=== PATIENT | male | born 1945 | race Caucasian/White ===

== ENCOUNTER → 2017-06-14 10:14 | Outpatient (CLI) | payer MEDICARE ==
[2015-09-13 12:59] VITALS: BMI 38.5
[~2017-06-14 10:14] MED LIST: B-12 DOTS500 MCG PO; BETAPACE 80 MG80 MG PO; COLACE100 MG PO; FISH OIL 1,0001 CA1 PO; MULTIPLE VITAMI1 TA1 PO; NORVASC5 MG PO; PRILOSEC20 MG PO; TYLENOL W/CODEI1 TAB PO; XARELTO15 MG PO; ZESTORETIC 20-1 EACH PO; ZYRTEC10 MG PO
== END | disposition home or self-care (01) ==
LOC: D.LAB 10:14
DX: N39.0 Urinary tract infection, site not specified (principal); R31.9 Hematuria, unspecified

== ENCOUNTER → 2017-06-18 07:59 | Outpatient (CLI) | payer MEDICARE, BC ==
[2015-09-13 12:59] VITALS: BMI 38.5
== END | disposition home or self-care (01) ==
LOC: D.CT 07:59
DX: R31.9 Hematuria, unspecified (principal)

== ENCOUNTER 2017-07-11 05:43 | Day surgery (SDC) | payer MEDICARE, BC ==
[2017-07-10 10:22] LABS: HEMATOCRIT 40.1 % (42.0-54.0); HEMOGLOBIN 13.2 g/dL (13.5-17.5); MCH 29.4 pg (26.0-34.0); MCHC 32.9 g/dL (31.0-37.0); MCV 89.3 fL (80.0-100.0); MEAN PLATELET VOLUME 10.5 fL (7.4-10.4); RBC 4.49 10x6/uL (4.20-6.10); RDW 13.9 % (11.5-14.5); WBC 9.1 10x3/uL (4.8-10.8)
[2017-07-10 10:41] LABS: CALCIUM 9.8 mg/dL (8.5-10.1); CARBON DIOXIDE 26.3 mmol/L (21.0-32.0); CREATININE - SERUM 1.1 mg/dL (0.6-1.3); POTASSIUM - SERUM 4.3 mmol/L (3.5-5.1)
[~2017-07-11 05:43] MED LIST changes: +GLUCOPHAGE500 MG PO; +GLUCOSAMINE HC500 MG PO; +NORVASC10 MG PO; -NORVASC5 MG PO; +VITAMIN B-122500 MCG PO; +ZYLOPRIM300 MG PO
[2017-07-11] MEDS ORDERED: TRESIBA FL100 UNIT/1 SC (06:57)
[2017-07-11 07:01] VITALS: BP 118/64; BMI 37.7
--- NOTE | 2017-07-11 13:56 | OP ---
PATIENT NAME: JINNY THORNTON MEDICAL RECORD: [id number] :[birth year] LOCATION:D.[facility] ADMISSION DATE: SURGEON: ALDO EUGENE MD DATE OF OPERATION: 07/11/2017 SURGEON: Aldo Eugene MD ANESTHESIA: MAC by Emir Sánchez CRNA PREOPERATIVE DIAGNOSES: Gross hematuria, obstructive BPH. PROCEDURE: Cystoscopy. FINDINGS: Obstructive, vascular BPH. No bladder tumors. Heavily trabeculated bladder. ESTIMATED BLOOD LOSS: None. CLINICAL HISTORY: This is a 71-year-old male who has symptoms of obstructive BPH including slow urinary flow, urinary frequency, and nocturia. He also has episodes of gross hematuria. Urine cytology was sent and it is benign. He comes today to have cystoscopy performed. HE IS ALLERGIC TO IODINE. He was given Ancef 2 grams IV systems consultant to the OR. DESCRIPTION OF PROCEDURE: The patient was given IV sedation. He was then placed in the dorsal lithotomy position and prepped and draped. We used castile soap to prep the patient with. Lidocaine jelly was inserted into the urethra. A 17-Slovenian scope with 30-degree lens was used for visualization. The penile urethra shows no strictures. Bulbar urethra shows significant vascularity and this leads into an obstructive BPH with trilobar hyperplasia. The prostatic mucosa is very vascular. Going into the bladder, after going through a tall bladder neck, he has single ureteral orifices bilaterally. No bladder tumors were seen. The bladder is heavily trabeculated. The bladder was emptied through the scope and then the scope was removed. I will get the patient started on finasteride. I will see him in one month's time to see how he is doing. TRANSINT:[id number] Voice Confirmation ID: [id number] DOCUMENT ID: [id number] ALDO EUGENE MD at 1356 CC: [id number] DICTATION DATE: 07/11/17 1059 LEGUILLON DEBEADER: 07/11/17 1208 [facility] [address] [place] [address]
== END 2017-07-11 12:20 | disposition home or self-care (01) ==
LOC: D.OPS 05:43 → D.PAN 07:45 → D.OPS 09:00
PROVIDERS: Anesthesiology
DX: N40.0 Benign prostatic hyperplasia without lower urinary tract symptoms (principal); R31.9 Hematuria, unspecified; F17.200 Nicotine dependence, unspecified, uncomplicated; I10 Essential (primary) hypertension; E11.9 Type 2 diabetes mellitus without complications; J44.9 Chronic obstructive pulmonary disease, unspecified; K21.9 Gastro-esophageal reflux disease without esophagitis; Z01.812 Encounter for preprocedural laboratory examination

== ENCOUNTER → 2019-07-09 12:24 | Outpatient (CLI) | payer MEDICARE, BC ==
[~2019-07-09 12:24] MED LIST changes: +TRESIBA FL100 UNIT/1 SC
== END | disposition home or self-care (01) ==
LOC: D.RT 12:24
PROVIDERS: ATTEND Internal Medicine Pulmonary Disease
DX: J44.9 Chronic obstructive pulmonary disease, unspecified (principal); R59.0 Localized enlarged lymph nodes

== ENCOUNTER 2019-10-07 11:25 | Outpatient (CLI) | payer MEDICARE, BC ==
[~2019-10-07] VITALS: Ht 175.3 cm; Wt 75.0 kg
--- NOTE | ~2019-10-07 | HEMODYNAMI ---
PATIENT:JINNY THORNTON MEDICAL RECORD: [id number] : 49 LOCATION:D.[facility] ADMISSION DATE: 10/07/19 Generatedon:10/07/201913:26 Patient name: JINNY THORNTON Patient #: [id number] SSN: : 1945 Date of study: 10/07/2019 Page: Of Hemodynamic Procedure Report Patient Data Patient Demographics Procedure consent was obtained First Name: JINNY Gender: Male Last Name: NORBERTO : 1945 Middle Initial: A Age: 74 year(s) Patient #: [id number] Race: Unknown Additional ID: [id number] Contact details [address]: [address] [place] [address] DRIVE [place] [place] [facility] Zip code: [address] Past Medical History Allergies Allergen Reaction Date Comments Reported Iodine 09/13/2015 Iodine 10/07/2019 Admission Admission Data Admission Date: 10/07/2019 Admission Time: 11:25 Height (in.): 69 BSA: 2.36 (m2) Height (cm.): 175.26 BMI: 40.46 (kg/m2) Weight (lbs.): 274 Weight (kg.): 124.28 Lab Results Lab Result Date: 10/07/2019 Lab Result Time: 0:00 Biochemistry Name Units Result Min Max BUN mg/dl 29 --(----)-* 7 18 Creatinine mg/dl 1.1 --(--*-)-- 0.6 1.3 eGFR ml/min 70.36871 *-(----)-- 90 120 NONAFRICAN CBC Name Units Result Min Max Hematocrit % 45.6 --(-*--)-- 42 54 Hemoglobin g/dl 15.2 --(-*--)-- 13.5 17.5 Procedure Procedure Types Cath Procedure Diagnostic Procedure Cardioversion External Procedure Description Procedure Date Procedure Date: 10/07/2019 Procedure Start Time: 13:16 Procedure End Time: 13:23 Procedure Staff Name Function Tadeo Amado MD Performing Physician Denita Rodriguez RT Monitor Govind Fitzpatrick CRNA Additional personnel Josefina Emanuel RN Nurse Procedure Data Cath Procedure Estimated blood loss: 0 ml Procedure Complications No complications Procedure Medications Medication Administration Route Dosage 0.9% NaCl I.V. 100 ml/hr Oxygen etCO2 Nasal cannula 2 l/min Refer to Anesthesia Notes for Sedation Medications Hemodynamics Rest BSA: 2.36 (m2) HGB: 15.2 (g/dl) O2 Consumption: Estimated: 259.33 (ml/min) O2 Consumption indexed: Estimated:109.89 (ml/min/m) Heart Rate: 55 (bpm) Snapshots Pre Cath Intra NCS Post Cath Vital Signs Time Heart Resp SPO2 etCO2 NIBP (mmHg) Rhythm Pain Sedation Rate (ipm) (%) (mmHg) Status Level (bpm) 13:04:15 53 17 98 30 130/76(104) A-Fib 0 (11) 10(A) , No pain 13:08:33 48 16 98 30.7 130/76(108) A-Fib 0 (11) 10(A) , No pain 13:12:53 56 16 98 21.7 128/81(112) A-Fib 0 (11) 10(A) , No pain 13:17:13 54 15 98 30.7 127/74(109) A-Fib 0 (11) 9(A) , No pain 13:21:34 51 12 94 0 125/74(104) SB 0 (11) 10(A) , No pain 13:25:33 0 No Cuff SB 0 (11) 10(A) , No pain Medications Time Medication Route Dose Verified Delivered Reason Notes Effective ness by by 13:02:56 0.9% NaCl I.V. 100 Tadeo Kirti used for ml/hr Aneudy Moran weather analyst 13:03:15 Oxygen etCO2 2 Tadeo Kirti used for Nasal l/min Aneudy Moran procedure cannula RN 13:03:21 Refer to Tadeo Tadeo used for Anesthesia Aneudy Amado MD procedure Notes for Sedation Medications Procedure Log Time Note 12:50:12 Procedure Status Elective Heart Cath (OP). 12:50:13 Time tracking: Regular hours (M-F 7:00 - 5:00) 12:50:17 Plan of Care:Hemodynamics will remain stable., Cardiac rhythm will remain stable., Comfort level will be maintained., Respiratory function will remain adequate., Patient/ family verbilizes understanding of procedure., Procedure tolerated without complication., Recovers from procedure without complications.. 12:50:25 H&P Date Dictated: 09/25/2019 Within 30 days and on chart., H&P Addendum completed by physician on day of procedure. (MUST COMPLETE FOR ALL OUTPATIENTS). 12:50:31 Patient allergic to Iodine 12:51:15 Patient Weight : 274 lbs 12:51:19 Patient Height : 69 inches 12:55:08 Denita Rodriguez RT(R) sent for patient. Start room use. 12:57:57 Patient arrived from Pre/Post Procedure Room to [facility] 3. Patient remains on bed/stretcher for procedure. 12:57:59 Signed procedure consent form obtained from patient. 12:58:00 Warm blankets applied, and fidel hugger turned on for patient comfort. 12:58:01 Correct patient and procedure confirmed by team. 12:58:02 ECG and BP/O2 sat monitors applied to patient. 13:02:42 Vital chart was started 13:02:56 0.9% NaCl 100 ml/hr I.V. was administered by Kirti Moran RN; used for procedure; Verbal order read back and verified. 13:03:15 Oxygen 2 l/min etCO2 Nasal cannula was administered by Kirti Moran RN; used for procedure; Verbal order read back and verified. 13:03:21 Refer to Anesthesia Notes for Sedation Medications was administered by Tadeo Amado MD; used for procedure; Verbal order read back and verified. 13:03:43 Baseline sample Acquired. 13:03:49 Rhythm: atrial fibrillation 13:03:57 Full Disclosure recording started 13:03:57 Pre-procedure instructions explained to patient. 13:03:58 Pre-op teaching completed and patient verbalized understanding. 13:03:59 Family in patients room. 13:04:00 Patient NPO since Midnight. 13:04:02 Is the patient allergic to Iodine/contrast media? No. 13:04:03 Is patient on blood thinner?Yes 13:04:07 ACC The patient was administered the following blood thiners within the last 24 hours: Xarelto 13:04:09 Patient diabetic? Yes. 13:04:11 If diabetic: On Metformin? Yes 13:04:31 If on Metformin: Last Dose? 10/06/2019 13:04:49 Previous problem with sedation/anesthesia? No ? 13:04:50 Snore? Yes 13:04:50 Sleep apnea? Yes 13:04:51 Deviated septum? No 13:04:52 Opens mouth fully? Yes 13:04:53 Sticks out tongue? Yes 13:04:58 Airway obstruction? Yes ASTHMA 13:05:01 Dentures? No ? 13:05:04 Patient pain scale 0/10 ?. 13:05:10 IV patent on arrival in left antecubital with 0.9% NaCl at [facility]. 13:05:15 Alarms reviewed by Jazmine Hedrick 13:06:13 Quick Combo opened to sterile field. 13:08:20 Lab Result : Creatinine 1.1 mg/dl 13:08:20 Lab Result : BUN 29 mg/dl 13:08:20 Lab Result : eGFR NONAFRICAN 70.74751 ml/min 13:08:20 Lab Result : Hemoglobin 15.2 g/dl 13:08:20 Lab Result : Hematocrit 45.6 % 13:08:31 Lab results completed and on chart. 13:08:39 Govind Fitzpatrick CRNA present and monitoring patient for TIVA. 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 13:14:09 --------ALL STOP TIME OUT------ 13:14:09 Final Timeout: patient, procedure, and site verified with staff and physician. All members of the team are in agreement. 13:14:15 Physical assessment completed. ASA score P 2 - A patient with mild systemic disease as per Tadeo Amado MD. 13:14:19 Sedation plan: TIVA Medication:Propofol 13:16:22 Procedure started. 13:16:41 ------Cardioversion------ 13:18:23 Quick combo pads placed on patients chest and back. 13:18:26 Defibrillator synced and charged to 200 Joules. 13:18:48 Shock delivered. 13:18:57 Patient cardioverted to sinus bradycardia. 13:19:06 Procedure ended.(Physican Out) 13:20:06 Post-procedure physical assessment completed. ASA score P 2 - A patient with mild systemic disease as per Tadeo Amado MD. 13:20:10 Post procedure rhythm: sinus bradycardia 13:20:13 Estimated blood loss: 0 ml 13:20:14 Post procedure instruction explained to patient.Patient verbalizes understanding. 13:20:15 Patient needs reinforcement of post procedure teaching. 13:20:30 Procedure and supply charges have been captured, reviewed, submitted and are correct. 13:20:33 Procedure Complication : No complications 13:21:39 Operative report dictated upon procedure completion. 13:21:40 See physician's report for complete and final results. 13:23:41 Report given to Pre/Post Procedure Room. 13:23:44 Patient transfered to Pre/Post Procedure Room with Bed. 13:23:46 Procedure ended. 13:23:46 Full Disclosure recording stopped 13:23:50 End room use (Document Last) 13:26:08 Vital chart was stopped Device Usage Item Manufacture Quantity Catalog Hospital Part Current Minimal Lot# / Name Number Charge Number Stock Stock [facility]# Code [facility] OneWire 1 [id number] Combo Signature Audit [place] Stage Time Signature Unsigned Intra-Procedure 10/07/2019 Denita Rodriguez 1:24:53 PM RT(R) Intra-Procedure 10/07/2019 Josefina Emanuel RN 1:25:21 PM Intra-Procedure 10/07/2019 Tadeo Amado MD 1:26:06 PM [id number] [place] [address]
[2019-10-07] MEDS ORDERED: ASPIRIN81 MG PO (12:03)
[2019-10-07] MEDS ORDERED: ZYRTEC10 MG PO (12:03)
[2019-10-07] MEDS ORDERED: PROSCAR5 MG PO (12:04)
[2019-10-07] MEDS ORDERED: BASAGLAR K100 UNIT/1 (12:06)
[2019-10-07] MEDS ORDERED: BETAPACE 80 MG80 MG PO (12:09)
[2019-10-07] MEDS ORDERED: XARELTO20 MG PO (12:09)
[2019-10-07] MEDS ORDERED: LISINOPRIL-HCT1 EAC7 PO (12:09)
[2019-10-07] MEDS ORDERED: ZOLOFT25 MG (12:10)
[2019-10-07] MEDS ORDERED: LANTUS SOL100 UNIT/1 (12:11)
[2019-10-07 12:22] VITALS: BP 124/67; Ht 175.3 cm; Wt 75.0 kg
[2019-10-07 12:40] LABS: BASOPHILS 0.2 % (0-2); EOSINOPHILS 1.5 % (0-7); HEMATOCRIT 45.6 % (42.0-54.0); HEMOGLOBIN 15.2 g/dL (13.5-17.5); IMMATURE GRANULOCYTES 0.2 % (0-5); MCH 29.9 pg (26.0-34.0); MCHC 33.3 g/dL (31.0-37.0); MCV 89.8 fL (80.0-100.0); MEAN PLATELET VOLUME 10.9 fL (7.4-10.4); MONOCYTES 12.2 % (2-11); NEUTROPHILS 62.9 % (40-80); PLATELET COUNT 199 10x3/uL (130-400); RBC 5.08 10x6/uL (4.20-6.10); RDW 14.8 % (11.5-14.5); WBC 8.4 10x3/uL (4.8-10.8)
[2019-10-07 12:49] LABS: ANION GAP 12.5 mmol/L (8-16); CALCIUM 9.6 mg/dL (8.5-10.1); CARBON DIOXIDE 27.9 mmol/L (21.0-32.0); CREATININE - SERUM 1.1 mg/dL (0.6-1.3); POTASSIUM - SERUM 4.4 mmol/L (3.5-5.1)
[2019-10-07 12:50] LABS: INR 1.51 (0.85-1.17)
--- NOTE | 2019-10-07 13:32 | NUR ---
PT ARRIVED BY STRETCHER. PLACED ON MONITORS. ASSESSMENT COMPLETED. VSS. FAMILY AT BEDSIDE. CALL LIGHT WITHIN REACH.
--- NOTE | 2019-10-07 13:46 | NUR ---
PT SITTING UP IN BED. EATING AND DRINKING. DENIES NAUSEA/PAIN AT THIS TIME. VSS. PT SINUS ALISON ON MONITOR. HR 54.
--- NOTE | 2019-10-07 13:50 | NUR ---
DR. BACA ROUNDED AND SPOKE WITH PT AND PT'S FAMILY.
--- NOTE | 2019-10-07 14:15 | NUR ---
PT IN SINUS BRADYCARDIA. RATE 51. PIV D/C'D WITH CATH TIP INTACT. TOLERATED WELL. PT INSTRUCTED TO GET UP AND DRESSED AT THIS TIME.
--- NOTE | 2019-10-07 14:25 | NUR ---
DISCUSSED DISCHARGE INSTRUCTIONS WITH PT AND PT'S FAMILY. THEY VOICED UNDERSTANDING.
--- NOTE | 2019-10-07 14:30 | NUR ---
PT TAKEN OUT TO VEHICLE BY WHEELCHAIR. NO S/S OF DISTRESS NOTED. ALL BELONGINGS AND PAPERWORK IN HAND.
== END 2019-10-07 14:30 | disposition home or self-care (01) ==
LOC: D.CATH 11:25
PROVIDERS: ATTEND Internal Medicine Cardiovascular Disease
DX: I48.91 Unspecified atrial fibrillation (principal); E11.9 Type 2 diabetes mellitus without complications; I10 Essential (primary) hypertension; Z79.84 Long term (current) use of oral hypoglycemic drugs; Z72.0 Tobacco use; J44.9 Chronic obstructive pulmonary disease, unspecified

== ENCOUNTER → 2019-11-12 10:21 | Outpatient (CLI) | payer MEDICARE, BC ==
[2019-10-07 12:22] VITALS: BMI 24.4
[~2019-11-12 10:21] MED LIST changes: +ASPIRIN81 MG PO; +BASAGLAR K100 UNIT/1; +LANTUS SOL100 UNIT/1; +LISINOPRIL-HCT1 EAC7 PO; +PROSCAR5 MG PO; +XARELTO20 MG PO; +ZOLOFT25 MG
== END | disposition home or self-care (01) ==
LOC: D.CT 10:21
PROVIDERS: ATTEND Internal Medicine Pulmonary Disease
DX: R59.0 Localized enlarged lymph nodes (principal)

== ENCOUNTER 2020-02-26 08:52 | Outpatient (CLI) | payer MEDICARE, BC ==
[~2020-02-26] VITALS: Ht 175.3 cm; Wt 121.9 kg
--- NOTE | ~2020-02-26 | HEMODYNAMI ---
PATIENT:JINNY THORNTON MEDICAL RECORD: [id number] : 49 LOCATION:D.CAT ADMISSION DATE: 02/26/20 Generatedon:02/26/202011:18 Patient name: JINNY THORNTON Patient #: [id number] SSN: : 1945 Date of study: 02/26/2020 Page: Of Hemodynamic Procedure Report Patient Data Patient Demographics Procedure consent was obtained First Name: JINNY Gender: Male Last Name: NORBERTO : 1945 Middle Initial: A Age: 74 year(s) Patient #: [id number] Race: Unknown Additional ID: [id number] Contact details Address: [address] [place] [address] [address]IVE [place] [facility] Zip code: [address] Past Medical History Allergies Allergen Reaction Date Comments Reported Iodine 09/13/2015 Iodine 10/07/2019 Iodine 02/26/2020 Admission Admission Data Admission Date: 02/26/2020 Admission Time: 8:52 Lab Results Lab Result Date: 02/26/2020 Lab Result Time: 0:00 Biochemistry Name Units Result Min Max BUN mg/dl 23 --(----)-* 7 18 Creatinine mg/dl 0.3 *-(----)-- 0.6 1.3 eGFR ml/min 88.72003 -*(----)-- 90 120 NONAFRICAN CBC Name Units Result Min Max Hematocrit % 46.2 --(-*--)-- 42 54 Hemoglobin g/dl 14.9 --(-*--)-- 13.5 17.5 Procedure Procedure Types Cath Procedure Diagnostic Procedure Cardioversion External Procedure Description Procedure Date Procedure Date: 02/26/2020 Procedure Start Time: 11:06 Procedure End Time: 11:17 Procedure Staff Name Function Josefina Emanuel RN Nurse Stephanie Mcfarland RT Monitor Denita Rodriguez RT Scrub Emir Sánchez CRNA Additional personnel Rao Juarez MD Performing Physician Procedure Data Procedure Complications No complications Procedure Medications Medication Administration Route Dosage Oxygen etCO2 Nasal cannula 2 l/min Refer to Anesthesia Notes for Sedation Medications Hemodynamics Rest HGB: 14.9 (g/dl) Heart Rate: 50 (bpm) Snapshots Pre Cath Intra NCS Post Cath Vital Signs Time Heart Resp SPO2 etCO2 NIBP (mmHg) Rhythm Pain Sedation Rate (ipm) (%) (mmHg) Status Level (bpm) 11:02:28 53 19 93 141/74(106) NSR (Missing) 10(A) 11:06:36 55 15 95 135/83(101) NSR (Missing) 10(A) 11:11:35 44 23 93 0 Measuring NSR (Missing) 10(A) 11:11:41 44 17 94 3.7 132/74(89) NSR (Missing) 10(A) 11:16:04 No Cuff NSR (Missing) 10(A) Medications Time Medication Route Dose Verified Delivered Reason Notes Effective ness by by 11:02:08 Oxygen etCO2 2 Tadeo Porterie used for Nasal l/min Aneudy Emanuel RN procedure cannula 11:02:14 Refer to Tadeo Josefina Anesthesia Aneudy Emanuel RN Notes for Sedation Medications Procedure Log Time Note 10:43:33 Informed consent obtained and on chart 10:43:55 Procedure Status Cardioversion. 10:43:56 Time tracking: Regular hours (M-F 7:00 - 5:00) 10:44:00 Plan of Care:Hemodynamics will remain stable., Cardiac rhythm will remain stable., Comfort level will be maintained., Respiratory function will remain adequate., Patient/ family verbilizes understanding of procedure., Procedure tolerated without complication., Recovers from procedure without complications.. 10:44:08 H&P Date Dictated: 02/04/2020 Within 30 days and on chart., H&P Addendum completed by physician on day of procedure. (MUST COMPLETE FOR ALL OUTPATIENTS). 10:44:13 Patient allergic to Iodine 10:45:36 Josefina Emanuel RN sent for patient. Start room use. 10:54:07 Patient received from Pre/Post Procedure Room to [facility] 3 Alert and oriented. Tansferred to table in Supine position. 10:54:09 Warm blankets applied, and fidel hugger turned on for patient comfort. 10:54:10 Correct patient and procedure confirmed by team. 10:54:11 ECG and BP/O2 sat monitors applied to patient. 10:54:15 Pre-procedure instructions explained to patient. 10:54:15 Pre-op teaching completed and patient verbalized understanding. 10:54:19 Family in waiting room. 10:54:31 Patient NPO since Midnight. 10:55:07 Is the patient allergic to Iodine/contrast media? No. 10:55:09 Was the patient premedicated? No 10:55:30 Is patient on blood thinner?Yes 10:55:33 ACC The patient was administered the following blood thiners within the last 24 hours: Xarelto 10:55:41 Patient diabetic? No. 10:55:43 If diabetic: On Metformin? N/A 10:55:45 ----Pre-sedation anethsthesia assessment.---- 10:55:49 Previous problem with sedation/anesthesia? No ? 10:55:50 Snore? Yes 10:56:16 Sleep apnea? No 10:56:18 Deviated septum? No 10:56:19 Opens mouth fully? Yes 10:56:20 Sticks out tongue? Yes 10:56:22 Airway obstruction? Yes copd 10:56:47 Dentures? No ? 10:56:53 Patient pain scale 0/10 ?. 10:57:05 IV patent on arrival in left antecubital with 0.9% NaCl at [facility]. 10:57:50 Lab Result : Hemoglobin 14.9 g/dl 10:57:50 Lab Result : Hematocrit 46.2 % 10:59:07 Lab results completed and on chart. 10:59:49 Lab Result : eGFR NONAFRICAN 88.85445 ml/min 10:59:49 Lab Result : Creatinine 0.3 mg/dl 10:59:49 Lab Result : BUN 23 mg/dl 11:01:18 Vital chart was started 11:01:19 Baseline sample Acquired. 11:01:24 Rhythm: atrial fibrillation 11:01:26 Full Disclosure recording started 11::33 Stress Test: no; N/A ? 11::38 Alarms reviewed by R. N. 11::38 Sharps counted by scrub and verified by R.N. 11:02:08 Oxygen 2 l/min etCO2 Nasal cannula was administered by Josefina Emanuel RN; used for procedure; Verbal order read back and verified. 11:02:10 --------ALL STOP TIME OUT------ 11:02:10 Final Timeout: patient, procedure, and site verified with staff and physician. All members of the team are in agreement. 11:02:14 Refer to Anesthesia Notes for Sedation Medications was administered by Josefina Emanuel RN; ; Verbal order read back and verified. 11:02:23 Mid Chest site verified by team. 11:02:27 Fire Safety Assessment: A--An alcohol-based skin anteseptic being used preoperatively., C--Open oxygen or nitrous oxide is being used., D--An ESU, laser, or fiber-optic light is being used. 11:02:31 Physical assessment completed. ASA score P 2 - A patient with mild systemic disease as per Tadeo Amado MD. 11:02:36 2) 60-89 Mildly reduced kidney function, and other findings (as for stage 1) point to kidney disease. 11:02:46 Sedation plan: TIVA Medication:Propofol 11:03:41 Emir Sánchez CRNA present and monitoring patient for TIVA. 11:04:14 Quick Combo opened to sterile field. 11:06:43 Procedure started. 11:07:06 ------Cardioversion------ 11:07:08 Quick combo pads placed on patients chest and back. 11:09:27 Defibrillator synced and charged to 200 Joules. 11:09:29 Shock delivered. 11:10:13 Patient cardioverted to sinus bradycardia. 11:10:27 Procedure ended.(Physican Out) 11:11:50 Post Procedure Pulses reassessed and unchanged 11:12:14 Post-procedure physical assessment completed. ASA score P 2 - A patient with mild systemic disease as per Rao Juarez MD. 11:12:26 Post procedure rhythm: sinus bradycardia 11:12:29 Post procedure instruction explained to patient.Patient verbalizes understanding. 11:12:30 Patient needs reinforcement of post procedure teaching. 11:13:35 Procedure and supply charges have been captured, reviewed, submitted and are correct. 11:13:40 Procedure Complication : No complications 11:13:47 Operative report dictated upon procedure completion. 11:13:48 See physician's report for complete and final results. 11:13:50 Report given to Pre/Post Procedure Room. 11:13:54 Patient transfered to Pre/Post Procedure Room with Stretcher. 11:17:12 Procedure ended. 11:17:12 Full Disclosure recording stopped 11:17:15 End room use (Document Last) 11:17:27 End room use (Document Last) 11:17:46 End room use (Document Last) 11:18:14 Vital chart was stopped Device Usage Item Manufacture Quantity Catalog Hospital Part Current Minimal Lot# / Name Number Charge Number Stock Stock Seri al# Code [employer] 1 [id number] Combo Signature Audit [place] Stage Time Signature Unsigned Intra-Procedure 02/26/2020 Stephanie Mcfarland 11:17:28 AM RT(R) Intra-Procedure 02/26/2020 Josefina Emanuel RN 11:17:46 AM Intra-Procedure 02/26/2020 Rao Briggs 11:18:13 AM Harish [id number] [place] [address]
[~2020-02-26 08:52] MED LIST changes: -LANTUS SOL100 UNIT/1; +LANTUS SOLOSTAR3 ML SC
[2020-02-26 10:15] VITALS: BP 130/77; Ht 175.3 cm; Wt 121.9 kg
[2020-02-26 10:30] LABS: BASOPHILS 0.3 % (0-2); EOSINOPHILS 0.8 % (0-7); HEMATOCRIT 46.2 % (42.0-54.0); HEMOGLOBIN 14.9 g/dL (13.5-17.5); IMMATURE GRANULOCYTES 0.2 % (0-5); LYMPHOCYTES 18.2 % (15-50); MCH 29.5 pg (26.0-34.0); MCHC 32.3 g/dL (31.0-37.0); MCV 91.5 fL (80.0-100.0); MEAN PLATELET VOLUME 10.7 fL (7.4-10.4); MONOCYTES 10.9 % (2-11); NEUTROPHILS 69.6 % (40-80); PLATELET COUNT 180 10x3/uL (130-400); RBC 5.05 10x6/uL (4.20-6.10); RDW 14.9 % (11.5-14.5); WBC 9.1 10x3/uL (4.8-10.8)
[2020-02-26 10:42] LABS: CALC OSMOLALITY 282 mosm/kg (275-300); CALCIUM 9.2 mg/dL (8.5-10.1); CARBON DIOXIDE 29.9 mmol/L (21.0-32.0); CHLORIDE - SERUM 105 mmol/L (98-107); CREATININE - SERUM 0.9 mg/dL (0.6-1.3); GLUCOSE 97 mg/dL (74-106); POTASSIUM - SERUM 4.5 mmol/L (3.5-5.1); SODIUM 140 mmol/L (136-145); UREA NITROGEN 23 mg/dL (7-18); eGFR NON AFRICAN AMERICAN 88 mL/min (90-120)
[2020-02-26 10:44] LABS: INR 2.17 (0.85-1.17); PROTIME 23.9 SECONDS (11.6-15.0)
--- NOTE | 2020-02-26 11:20 | NUR ---
PT ARRIVED BY STRETCHER. PLACED ON MONITORS. ASSESSMENT COMPLETED. VSS AT THIS TIME. FAMILY AT BEDSIDE.
--- NOTE | 2020-02-26 11:30 | NUR ---
PT ALERT AND SITTING UP IN BED. SET UP WITH SANDWICH TRAY AND DRINK. DENIES NAUSEA/PAIN. HR 48 SINUS ALISON.
--- NOTE | 2020-02-26 12:00 | NUR ---
PT RESTING COMFORTABLY. VSS. CALL LIGHT WITHIN REACH. PT STILL IN SB. HR 47.
--- NOTE | 2020-02-26 12:30 | NUR ---
PT IN SB. HR 47. PIV D/C'D WITH CATH TIP INTACT. TOLERATED WELL. DISCUSSED DISCHARGE INSTRUCTIONS WITH PT AND PT'S . THEY VOICED UNDERSTANDING. PT INSTRUCTED TO GET UP AND DRESSED AT THIS TIME. NO ASSISTANCE NEEDED. CALL LIGHT WITHIN REACH.
--- NOTE | 2020-02-26 12:40 | NUR ---
PT UP AND AMBULATED TO RESTROOM. VOIDED WITHOUT DIFFICULTY. STEADY GAIT NOTED. PT TAKEN DOWN TO VEHICLE BY WHEELCHAIR. NO S/S OF DISTRESS NOTED. ALL BELONGINGS AND PAPERWORK IN HAND.
--- NOTE | 2020-02-29 09:25 | OP ---
PATIENT NAME: ANGEL LUIS THORNTON MEDICAL RECORD: [id number] :49 LOCATION:D.CAT ADMISSION DATE: SURGEON: SRINIVASAN BATEMAN MD DATE OF OPERATION: 02/26/2020 PROCEDURE: Cardioversion. INDICATION: Atrial fibrillation. DESCRIPTION OF PROCEDURE: After general sedation via anesthesia via TIVA, a single synchronized shock was successful in restoring atrial fibrillation to normal sinus rhythm. IMPRESSION: Successful cardioversion on Angel Luis Thornton. COMPLICATIONS: None. DISPOSITION: To the floor, stable. Was bradycardic upon cardioversion, could consider 24-hour monitor to make sure no indication for pacemaker at this point. TRANSINT:[id number] Voice Confirmation ID: [id number] DOCUMENT ID: [id number] SRINIVASAN BATEMAN MD at 0925 CC: [id number] DICTATION DATE: 02/26/20 1120 TELEGRAPH OFFICE TELEPHONE CLERK: 02/26/20 1703 DEP CLI 02/26/20 [id number] [place] [address]
== END 2020-02-26 12:40 | disposition home or self-care (01) ==
LOC: D.CATH 08:52
PROVIDERS: ATTEND Internal Medicine Cardiovascular Disease
DX: I48.91 Unspecified atrial fibrillation (principal); E11.9 Type 2 diabetes mellitus without complications; Z79.84 Long term (current) use of oral hypoglycemic drugs; I10 Essential (primary) hypertension; Z72.0 Tobacco use; J44.9 Chronic obstructive pulmonary disease, unspecified

== ENCOUNTER → 2020-03-31 09:19 | Outpatient (CLI) | payer MEDICARE, BC ==
[2020-02-26 10:15] VITALS: BMI 39.7
== END | disposition home or self-care (01) ==
LOC: D.HCCARDIO 09:19
PROVIDERS: ATTEND Internal Medicine Cardiovascular Disease
DX: I48.91 Unspecified atrial fibrillation (principal)

== ENCOUNTER 2020-05-12 06:28 | Day surgery (SDC) | payer MEDICARE, BC ==
[~2020-05-12] VITALS: Ht 175.3 cm; Wt 120.5 kg
--- NOTE | ~2020-05-12 | HEMODYNAMI ---
PATIENT:JINNY THORNTON MEDICAL RECORD: [id number] : 49 LOCATION:D.CAT ADMISSION DATE: 05/12/20 Generatedon:05/12/20209:15 Patient name: JINNY THORNTON Patient #: [id number] SSN: [id number] : 1945 Date of study: 05/12/2020 Page: Of Hemodynamic Procedure Report Patient Data Patient Demographics Procedure consent was obtained First Name: JINNY Gender: Male Last Name: NORBERTO : 1945 [facility] Initial: A Age: 74 year(s) Patient #: [id number] Race: Unknown SSN: [id number] Additional ID: [id number] Contact details [address]: [address] [place] [address] DRIVE State: [place] City: [place] Zip code: [address] Past Medical History Allergies Allergen Reaction Date Comments Reported Iodine 09/13/2015 Iodine 10/07/2019 Iodine 02/26/2020 Other allergy 05/12/2020 IODINE Admission Admission Data Admission Date: 05/12/2020 Admission Time: 6:28 Arrival Date: 05/12/2020 Arrival Time: 0:00 [facility] #: [id number] Height (in.): 68.9 BSA: 2.32 (m2) Height (cm.): 175 BMI: 39.18 (kg/m2) Weight (lbs.): 264.56 Weight (kg.): 120 Procedure Procedure Types Cath Procedure Diagnostic Procedure LHC LH w/Coronaries FFR/IVUS FFR Initial FFR Additional Sedation Charges Moderate Sedation up to 30 minutes PCI Procedure Coronary Stent Coronary Stent Initial Hemochron ACT Test Procedure Description Procedure Date Procedure Date: 05/12/2020 Procedure Start Time: 8:32 Procedure End Time: 9:13 Procedure Staff Name Function Tadeo Amado MD Performing Physician Maggie Davenport RT Monitor Josefina Emanuel RN Nurse Jolanta Peacock RT Scrub Denita Rodriguez RT Jewelry Drill Operator Gilbert Dinh RN Nurse Procedure Data Cath Procedure Fluoroscopy Diagnostic fluoroscopy Total fluoroscopy Time: time: 10.7 min 10.7 min Diagnostic fluoroscopy Total fluoroscopy dose: dose: 2383 mGy 2383 mGy Contrast Material Contrast Material Type Amount (ml) Isovue 300 120 Entry Location Entry Primary Successful Side Size Upsize Upsize Entry Closure Kerr ccessful Closure Location (Fr) 1 (Fr) 2 (Fr) Remarks Device Remarks Radial Right 6 Fr Mechanical artery Short Compression Estimated blood loss: 10 ml Diagnostic catheters Device Type Used For End Catheter Placement DIAGNOSTIC Conner 110cm Procedure 5Fr catheter ([id number]) DIAGNOSTIC Broadway 110cm 5 Procedure Fr catheter (841729) Procedure Complications No complications Procedure Medications Medication Administration Route Dosage Oxygen etCO2 Nasal cannula 2 l/min Lidocaine 2% added to field 20 Heparin Flush Bag added to field 2 bags (1000units/500ml NS) 0.9% NaCl I.V. 100 ml/hr Radial Cocktail added to field 1 syringe (Verapamil 2mg/Nitro 400mcg/Heparin 1500units) Versed I.V. 2 mg Fentanyl I.V. 50 mcg Fentanyl I.V. 50 mcg Radial Cocktail I.A. 1 syringe (Verapamil 2mg/Nitro 400mcg/Heparin 1500units) Heparin Bolus I.V. 3000 units Heparin Bolus I.V. 7000 units Plavix P.O. 600 mg Hemodynamics Rest BSA: 2.32 (m2) O2 Consumption: Estimated: 254.89 (ml/min) O2 Consumption indexed : Estimated:109.87 (ml/min/m) Heart Rate: 55 (bpm) Pressure Samples Time Site Value (mmHg) Purpose Heart Use Rate(bpm) 8:38 LV 119/-1,8 Snapshot 83 8:39 AO 95/51(72) Pullback 63 8:39 LV 122/-4,8 Pullback 63 Gradients Valve Time Site 1 Site 2 Mean SEP/DFP Peak To Heart Use (mmHg) (sec/min) Peak Rate (mmHg) (bpm) Aortic 8:39 LV AO 24 10 27 63 122/-4,8 95/51(72) Calculations Valve P-P Mean Valve Index Valve Source Name Gradient Area Flow (cm2) Aortic 27 24 27 24 Snapshots Pre Cath Intra NCS Post Cath Vital Signs Time Heart Resp SPO2 etCO2 NIBP (mmHg) Rhythm Pain Sedation Rate (ipm) (%) (mmHg) Status Level (bpm) 8:18:16 62 16 96 34.5 162/79(123) A-Fib 0 (11) 10(A) , No pain 8:22:32 56 29 96 34.4 149/68(95) A-Fib 0 (11) 10(A) , No pain 8:26:44 60 14 95 0 134/69(95) A-Fib 0 (11) 10(A) , No pain 8:30:48 59 13 96 34.4 131/76(91) A-Fib 0 (11) 10(A) , No pain 8:34:58 52 11 96 0 121/68(89) A-Fib 0 (11) 9(A) , No pain 8:39:06 59 18 94 35.9 119/68(83) A-Fib 0 (11) 9(A) , No pain 8:43:16 56 23 94 36.7 126/65(86) A-Fib 0 (11) 9(A) , No pain 8:47:29 59 26 94 36.7 125/62(86) A-Fib 0 (11) 9(A) , No pain 8:51:33 52 18 95 37.5 128/75(88) A-Fib 0 (11) 9(A) , No pain 8:55:43 51 10 94 7.4 127/68(95) A-Fib 0 (11) 9(A) , No pain 8:59:53 50 11 95 8.2 124/68(91) A-Fib 0 (11) 10(A) , No pain 9:04:36 53 12 95 0 126/68(94) A-Fib 0 (11) 10(A) , No pain 9:09:28 52 13 95 38.2 134/69(101) A-Fib 0 (11) 10(A) , No pain Medications Time Medication Route Dose Verified Delivered Reason Note s Effectiveness by by 8:17:46 Oxygen etCO2 2 l/min Tadeo Buffie used for Nasal Aneudy Emanuel RN procedure cannula 8:17:53 Lidocaine 2% added 20ml Tadeo Tadeo for local to vial Aneudy Amado MD anesthetic field 8:17:58 Heparin Flush added 2 bags Tadeo Tadeo used for Bag to Aneudy Amado MD procedure (1000units/500ml field NS) 8:18:06 0.9% NaCl I.V. 100 Tadeo Buffie Per physician ml/hr Aneudy Emanuel RN 8:21:54 Radial Cocktail added 1 Tadeo Tadeo for (Verapamil to syringe Aneudy Amado MD vasodilation 2mg/Nitro field 400mcg/Heparin 1500units) 8:26:01 Versed I.V. 2 mg Tadeo Buffie for sedation Aneudy Emanuel RN 8:26:09 Fentanyl I.V. 50 mcg Tadeo Buffie for sedation Aneudy Emanuel RN 8:31:33 Fentanyl I.V. 50 mcg Tadeo Buffie for sedation Aneudy Emanuel RN 8:37:19 Radial Cocktail I.A. 1 Tadeo Tadeo for (Verapamil syringe Aneudy Amado MD vasodilation 2mg/Nitro 400mcg/Heparin 1500units) 8:51:07 Heparin Bolus I.V. 3000 Tadeo Buffie for veri fied units Aneudy Emanuel RN anticoagulation with dr amado 9:05:58 Heparin Bolus I.V. 7000 Tadeo Buffie for veri fied units Aneudy Emanuel RN anticoagulation with dr amado 9:11:16 Plavix P.O. 600 mg Tadeo Buffie for Aneudy Emanuel RN antiplatelet therapy Procedure Log Time Note 7:44:21 Arrival Date: 05/12/2020 12:00:00 AM 7:46:50 Patient Height : 68.9 inches 7:46:53 Patient Weight : 264.56 lbs 7:59:44 Procedure Status Elective Heart Cath (OP). 8:00:02 Time tracking: Regular hours (M-F 7:00 - 5:00) 8:00:31 Denita Rodriguez RT(R) sent for patient. Start room use. 8:02:42 Stress Test: yes; abnormal INFERIOR AND APICAL 8:10:26 Patient received from Pre/Post Procedure Room to CCL 2 Alert and oriented. Tansferred to table in Supine position. 8:10:28 Warm blankets applied, and fidel hugger turned on for patient comfort. 8:10:29 Correct patient and procedure confirmed by team. 8:10:29 ECG and BP/O2 sat monitors applied to patient. 8:10:31 Signed procedure consent form obtained from patient. 8:17:17 Vital chart was started 8:17:20 Baseline sample Acquired. 8:17:28 Full Disclosure recording started 8:17:45 H&P Date Dictated: 05/12/2020 Within 30 days and on chart.. 8:17:46 Oxygen 2 l/min etCO2 Nasal cannula was administered by Josefina Emanuel RN; used for procedure; Verbal order read back and verified. 8:17:47 Pre-procedure instructions explained to patient. 8:17:49 Pre-op teaching completed and patient verbalized understanding. 8:17:51 Family in waiting room. 8:17:53 Lidocaine 2% 20ml vial added to field was administered by Tadeo Amado MD; for local anesthetic; Verbal order read back and verified. 8:17:53 Patient NPO since Midnight. 8:17:58 Heparin Flush Bag (1000units/500ml NS) 2 bags added to field was administered by Tadeo Amado MD; used for procedure; Verbal order read back and verified. 8:18:06 0.9% NaCl 100 ml/hr I.V. was administered by Josefina Emanuel RN; Per physician; Verbal order read back and verified. 8:18:22 Patient allergic to Other allergyIODINE 8:18:26 Is the patient allergic to Iodine/contrast media? Yes. 8:18:27 Was the patient premedicated? Yes 8:18:28 Is patient on blood thinner?Yes 8:18:34 ACC The patient was administered the following blood thiners within the last 24 hours: Xarelto 8:18:38 Patient diabetic? Yes. 8:18:39 If diabetic: On Metformin? Yes 8:18:44 If on Metformin: Last Dose? 05/10/2020 8:18:56 Snore? Yes 8:18:57 Sleep apnea? Yes 8:19:05 Dentures? No ? 8:19:10 Patient pain scale 0/10 ?. 8:19:14 IV patent on arrival in left forearm with 0.9% NaCl at [facility]. 8:19:42 Right Radial & Right Groin area was prepped with chlora-prep and draped in sterile fashion 8:19:43 Alarms reviewed by R. N. 8:19:44 Sharps counted by scrub and verified by R.N. 8:19:49 Physician arrived 8:21:54 Radial Cocktail (Verapamil 2mg/Nitro 400mcg/Heparin 1500units) 1 syringe added to field was administered by Tadeo Amado MD; for vasodilation; Verbal order read back and verified. 8:24:23 2) 60-89 Mildly reduced kidney function, and other findings (as for stage 1) point to kidney disease. 8:24:43 --------ALL STOP TIME OUT------ 8:24:44 Final Timeout: patient, procedure, and site verified with staff and physician. All members of the team are in agreement. 8:24:46 Right Radial & Right Groin site verified by team. 8:24:51 Fire Safety Assessment: A--An alcohol-based skin anteseptic being used preoperatively., C--Open oxygen or nitrous oxide is being used., D--An ESU, laser, or fiber-optic light is being used. 8:25:12 Physical assessment completed. ASA score P 2 - A patient with mild systemic disease as per Tadeo Amado MD. 8:25:19 Maximum allowable contrast dose (3.7 X eGFR X 0.75)194 ml. 8:25:24 Sedation plan: IV Moderate Sedation Medication:Versed, Fentanyl 8:25:29 Use device set Radial Dx or PCI 8:26:01 Versed 2 mg I.V. was administered by Josefina Emanuel RN; for sedation; Verbal order read back and verified. 8:26:09 Fentanyl 50 mcg I.V. was administered by Josefina Emanuel RN; for sedation; Verbal order read back and verified. 8:29:38 ACIST Syringe (40467) opened to sterile field. 8:29:39 Medline Cath Pack ([id number]) opened to sterile field. 8:29:41 Bag Decanter () opened to sterile field. 8:29:42 ACIST Hand Control (34956) opened to sterile field. 8:29:42 ACIST Manifold (97776) opened to sterile field. 8:29:46 MBrace Wrist Support ([id number]) opened to sterile field. 8:29:48 NEEDLE Cook 21G 4cm Radial (R48799) opened to sterile field. 8:29:52 EMERALD Guide Wire (284-909) opened to sterile field. 8:29:54 SHEATH 6FR RAIN (1704401) opened to sterile field. 8:30:13 Zero performed for pressure channel P1 8:30:37 Procedure started. 8:31:33 Fentanyl 50 mcg I.V. was administered by Josefina Emanuel RN; for sedation; Verbal order read back and verified. 8:32:58 Local anesthetic to right radial artery with Lidocaine 2% by Tadeo Amado MD.INITIAL ACCESS ONLY 8:36:35 A 6 Fr Short sheath was inserted into the Right Radial artery 8:37:07 A DIAGNOSTIC Conner 110cm 5Fr catheter (750863) was advanced over the wire and used for Procedure. 8:37:19 Radial Cocktail (Verapamil 2mg/Nitro 400mcg/Heparin 1500units) 1 syringe I.A. was administered by Tadeo Amado MD; for vasodilation; Verbal order read back and verified. 8:37:53 LV angiography performed. 8:38:56 EF : 50 % 8:39:18 LV gram done using PERDOMO 8:40:33 LCA angiography performed. 8:42:49 RCA angiography performed. 8:43:58 Catheter removed. 8:44:08 A DIAGNOSTIC Broadway 110cm 5 Fr catheter (769821) was advanced over the wire and used for Procedure. 8:45:56 LCA angiography performed. 8:46:42 Catheter removed. 8:49:34 [place] Verrata Plus pressure wire (03807J) opened to sterile field. 8:49:35 GUIDE 6FR XBLAD 3.5 catheter ([id number]) opened to sterile field. 8:49:36 INFLATOR Merit BasixCompak (KD5390) opened to sterile field. 8:49:37 TUBING High Pressure Extension Tubing (Aneudy) ([id number]) opened to sterile field. 8:49:46 Proceeding to intervention. 8:50:03 6 Fr XBLAD3.5 guide catheter was inserted over the wire 8:51:07 Heparin Bolus 3000 units I.V. was administered by Josefina Emanuel RN; for anticoagulation; verified with dr amado Verbal order read back and verified. 9:00:18 Wire advanced across lesion. 9:00:29 mCirc lesion measured at .93 with IFR 9:02:11 Wire advanced across lesion. 9:02:20 mLAD lesion measured at .90 with IFR 9:05:58 Heparin Bolus 7000 units I.V. was administered by Josefina Emanuel RN; for anticoagulation; verified with dr amado Verbal order read back and verified. 9:07:01 Place stent Inflation Number: 1 A SAVANNAH RX 3.5 x 22 stent ([id number]) was prepped and advanced across the Mid LAD 80. The stent was deployed at 14 NOÉ for 0:17 (min:sec) 0. 9:07:24 ZEPHYR REGULAR TR BAND (829377) opened to sterile field. 9:09:06 Wire removed. 9:09:08 Catheter removed. 9:09:25 Sheath removed intact; hemostasis achieved with Mechanical Compression to the Right Radial artery. 9:09:29 Procedure ended.(Physican Out) 9:09:47 Fluoroscopy time 10.70 minutes. 9:09:52 Fluoroscopy dose: 2383 mGy 9:09:52 Flurop Dose total: 2383 9:09:59 Dose Area Product 104796 mGy/cm. 9:10:03 Contrast amount:Isovue 300 120ml. 9:10:05 Maximum allowable dose exceeded? No. 9:10:13 Insertion/operative site no bleeding no hematoma. 9:10:19 Post-op/insertion site Right Radial artery dressed using a 4 x 4 and Tegaderm. 9:10:21 Post Procedure Pulses reassessed and unchanged 9:10:27 Post-procedure physical assessment completed. ASA score P 3 - A patient with severe systemic disease as per Tadeo Amado MD. 9:10:36 Estimated blood loss: 10 ml 9:10:41 Post procedure instruction explained to patient.Patient verbalizes understanding. 9:11:16 Plavix 600 mg P.O. was administered by Josefina Emanuel RN; for antiplatelet therapy; Verbal order read back and verified. 9:11:46 Procedure type changed to Cath procedure, Diagnostic procedure, LHC, [facility] w/Coronaries, FFR/IVUS, FFR Initial, FFR Additional, Sedation Charges, Moderate Sedation up to 30 minutes, PCI procedure, Coronary Stent, Coronary Stent Initial, Hemochron ACT Test 9:11:58 Procedure and supply charges have been captured, reviewed, submitted and are correct. 9:12:28 Procedure Complication : No complications 9:12:31 Vital chart was stopped 9:12:48 [facility] Findings: MVD- PCI performed (see procedure note) 9:12:53 Operative report dictated upon procedure completion. 9:12:54 See physician's report for complete and final results. 9:12:56 Report given to Pre/Post Procedure Room. 9:13:02 Patient transfered to Pre/Post Procedure Room with Stretcher. 9:13:04 Procedure ended. 9:13:04 Full Disclosure recording stopped 9:13:13 End room use (Document Last) 9:15:05 ACT drawn and resulted at out of range high seconds. (normal therapeutic range 180-240 seconds). Intervention Summary Intervention Notes Time ActionType Lesion and Equipment Used Action# Pressure Duration Attributes 9:07:01 Place stent Mid LAD SAVANNAH RX 3.5 x 1 14 00:17 22 stent ([id number]) Device Usage Item Name Manufacture Quantity Catalog Hospital Part Current Minimal Lot# / Number Charge Number Stock Stock Serial# Code ACIST Syringe Acist 1 21063 034260 035053 712177 20 (54454) Medical Systems Inc Medline Cath Medline 1 [id number] 661162 78244 246080 5 Pack ([id number]) Bag Decanter Microtek 1 2001S 721559 07260 020748 5 (2001S) Medical Inc. ACIST Hand Acist 1 39201 635409 814853 143113 5 Control Medical (38302) Systems Inc ACIST Manifold Acist 1 61765 264178 278555 060243 5 (12510) Medical Systems Inc MBrace Wrist Advanced 1 140-0250-00 838143 27380 165035 5 Support Vascular ([id number]) Dynamics NEEDLE [employer] Square Medical 1 [id number] 078291 060762 242954 5 21G 4cm Radial (L81727) EMERALD Guide Cardinal 1 502-455 557769 940587 576357 5 Wire (502-455) Health SHEATH 6FR Cardinal 1 0026023 074023 2551787 791572 5 RAIN (4118872) Health DIAGNOSTIC Terumo 1 40-5023 079718 753824 894200 5 Conner 110cm 5Fr catheter (766771) DIAGNOSTIC Terumo 1 40-5013 602469 421717 441271 5 Broadway 110cm 5 Fr catheter (243459) [place] Heilwood 1 12861K 467407 693504949 257549 5 Verrata Plus pressure wire (58696W) GUIDE 6FR Cardinal 1 [id number] 498654 989670 311480 10 XBLAD 3.5 Health catheter (83980549) INFLATOR Merit Merit 1 VV1900 199792 579338 498535 15 BasixCompak Medical (GO7916) TUBING High Merit 1 [id number] 896148 88621 811510 10 Pressure Medical Extension Tubing (Amado) (US3741D) SAVANNAH RX 3.5 x Medtronic 1 [id number] 456073 5018458 247996 5 [id number] 22 stent ([id number]) ZEPHYR REGULAR Cardinal 1 570084 712097 8500473 725529 5 [facility] (937356) Signature Audit [place] Stage Time Signature Unsigned Intra-Procedure 05/12/2020 Maggie Davenport 9:13:49 AM RT(R) Intra-Procedure 05/12/2020 Josefina Emanuel RN 9:14:28 AM Intra-Procedure 05/12/2020 Tadeo Amado MD 9:15:45 AM Signatures Performing Physician : Signature : Tadeo Amado MD Date : Time : Monitor : Maggie Davenport Signature : RT Date : Time : Nurse : Josefina Emanuel RN Signature : Date : Time : Nurse : Gilbert Dinh Signature : RN Date : Time : [facility] [address] [place] [address]
[2020-05-12 07:36] VITALS: BP 130/74; Ht 175.3 cm; Wt 120.5 kg
[2020-05-12 07:58] LABS: BASOPHILS 0.1 % (0-2); EOSINOPHILS 0.1 % (0-7); HEMATOCRIT 43.7 % (42.0-54.0); HEMOGLOBIN 14.2 g/dL (13.5-17.5); IMMATURE GRANULOCYTES 0.3 % (0-5); MCHC 32.5 g/dL (31.0-37.0); MCV 89.4 fL (80.0-100.0); MEAN PLATELET VOLUME 11.1 fL (7.4-10.4); MONOCYTES 1.8 % (2-11); NEUTROPHILS 87.7 % (40-80); PLATELET COUNT 206 10x3/uL (130-400); RBC 4.89 10x6/uL (4.20-6.10); RDW 15.4 % (11.5-14.5)
[2020-05-12 08:08] LABS: CALCIUM 9.4 mg/dL (8.5-10.1); CARBON DIOXIDE 27.8 mmol/L (21.0-32.0); CHOL - HDL RATIO 5.7 ratio (2.3-4.9); CREATININE - SERUM 1.1 mg/dL (0.6-1.3); LDL-HDL RATIO 4.1 ratio (1.5-3.5); POTASSIUM - SERUM 4.8 mmol/L (3.5-5.1)
[2020-05-12] MEDS ORDERED: PLAVIX75 MG PO (09:38)
--- NOTE | 2020-05-12 09:45 | NUR ---
SITTING UP IN BED EATING SANDWICH AND DRINKING COFFEE. NO C/O N/V. RIGHT WRIST Z BAND CDI, NO BLEEDING OR HEMATOMA NOTED. VSS. AT BEDSIDE, CALL LIGHT WITHIN REACH.
--- NOTE | 2020-05-12 10:15 | NUR ---
RESTING QUIETLY WITH EYES CLOSED. RIGHT WRIST Z BAND CDI, NO BLEEDING OR HEMATOMA NOTED. NO C/O PAIN OR NAUSEA. VSS. CALL LIGHT WITHIN REACH.
--- NOTE | 2020-05-12 10:36 | NUR ---
CONTINUES TO REST QUIETLY WITH EYES CLOSED. RIGHT WRIST Z BAND CDI, NO BLEEDING OR HEMATOMA NOTED. DENIES ANY NEEDS AT THIS TIME. VSS. WILL CONTINUE TO MONITOR.
--- NOTE | 2020-05-12 11:01 | NUR ---
RIGHT WRIST Z BAND CDI, NO BLEEDING OR HEMATOMA NOTED. NO C/O PAIN OR NAUSEA. CONTINUES TO REST QUIETLY. VSS. CALL LIGHT WITHIN REACH.
--- NOTE | 2020-05-12 12:00 | NUR ---
RIGHT WRIST Z BAND CDI, NO BLEEDING OR HEMATOMA NOTED. NO C/O N/V OR PAIN. ON ROOM AIR WITH NO RESP DISTRESS. VSS. AT BEDSIDE. CALL LIGHT WITHIN REACH.
--- NOTE | 2020-05-12 12:30 | NUR ---
2CC OF AIR REMOVED FROM Z BAND WITH NO BLEEDING NOTED. VSS. WILL CONTINUE TO MONITOR.
--- NOTE | 2020-05-12 12:45 | NUR ---
3CC OF AIR REMOVED FROM Z BAND WITH NO BLEEDING NOTED.
--- NOTE | 2020-05-12 13:00 | NUR ---
2CC OF AIR REMOVED FROM Z BAND WITH NO BLEEDING NOTED.
--- NOTE | 2020-05-12 13:15 | NUR ---
LEFT ARM PIV D/C'D WITH CATHETER INTACT, BAND AID TO SITE. UP TO BEDSIDE TO GET DRESSED. AMBULATED TO RESTROOM WITHOUT ASSIST.
--- NOTE | 2020-05-12 13:30 | NUR ---
REMAINING AIR REMOVED FROM Z BAND WITH NO BLEEDING NOTED. DRESSING TO SITE. DISCHARGE INSTRUCTIONS ALONG WITH PLAVIX PRESCRIPTION GIVEN TO PT AND . BOTH VERBALIZED UNDERSTANDING. TAKEN OUT TO VEHICLE VIA WHEELCHAIR. LEFT FACILITY WITH AND ALL PERSONAL BELONGINGS.
== END 2020-05-12 13:52 | disposition home or self-care (01) ==
LOC: D.CATH 06:28
PROVIDERS: ATTEND Internal Medicine Cardiovascular Disease
DX: I48.91 Unspecified atrial fibrillation (principal); R06.09 Other forms of dyspnea; I10 Essential (primary) hypertension; J44.9 Chronic obstructive pulmonary disease, unspecified; E78.5 Hyperlipidemia, unspecified; E11.9 Type 2 diabetes mellitus without complications; R06.02 Shortness of breath
CPT/HCPCS: 93458; 93571; 93572; C9600

== ENCOUNTER → 2020-05-27 08:47 | Outpatient (CLI) | payer MEDICARE, BC ==
[2020-05-12 07:36] VITALS: BMI 39.2
[~2020-05-27 08:47] MED LIST changes: +PLAVIX75 MG PO
== END | disposition home or self-care (01) ==
LOC: D.CT 08:47
PROVIDERS: ATTEND Internal Medicine Pulmonary Disease
DX: R59.0 Localized enlarged lymph nodes (principal)

== ENCOUNTER 2021-02-21 08:23 | Day surgery (SDC) | payer MEDICARE, BC ==
[~2021-02-21] VITALS: Ht 175.3 cm; Wt 126.5 kg
--- NOTE | ~2021-02-21 | HEMODYNAMI ---
PATIENT:JINNY THORNTON MEDICAL RECORD: [id number] : 49 LOCATION:D.CAT ADMISSION DATE: 02/21/21 Generatedon:111:01 Patient name: JINNY THORNTON Patient #: [id number] SSN: [id number] : 1945 Date of study: 02/21/2021 Page: Of Hemodynamic Procedure Report Patient Data Patient Demographics Procedure consent was obtained First Name: JINNY Gender: Male Last Name: NORBERTO : 1945 [facility] Initial: A Age: 75 year(s) Patient #: [id number] Race: Unknown SSN: [id number] Additional ID: [id number] Contact details [address]: [address] [place] [address] [address] State: [place] City: [place] Zip code: [address] Past Medical History Allergies Allergen Reaction Date Comments Reported Iodine 09/13/2015 Iodine 10/07/2019 Iodine 02/26/2020 Other allergy 05/12/2020 IODINE Iodine 02/21/2021 Admission Admission Data Admission Date: 02/21/2021 Admission Time: 8:23 Procedure Procedure Types Cath Procedure Diagnostic Procedure Cardioversion External Procedure Description Procedure Date Procedure Date: 02/21/2021 Procedure Start Time: 10:51 Procedure End Time: 10:59 Procedure Staff Name Function Rao Juarez MD Performing Physician Denita Rodriguez RT Monitor Bautista Varela RT Monitor Gilbert Dinh RN Nurse Bradly Boyce CRNA Additional personnel Procedure Data Procedure Complications No complications Procedure Medications Medication Administration Route Dosage 0.9% NaCl I.V. 100 ml/hr Oxygen etCO2 Nasal cannula 5 l/min Refer to Anesthesia Notes for Sedation Medications Hemodynamics Rest Heart Rate: 48 (bpm) Snapshots Pre Cath Intra NCS Post Cath Vital Signs Time Heart Resp SPO2 etCO2 NIBP Rhythm Pain Sedation Rate (ipm) (%) (mmHg) (mmHg) Status Level (bpm) 10:17:16 57 17 94 0 113/56(93) A-Fib 0 (11) 10(A) , No pain 10:21:36 38 16 97 32.3 110/55(85) A-Fib 0 (11) 10(A) , No pain 10:26:55 43 20 97 24 101/55(80) A-Fib 0 (11) 10(A) , No pain 10:31:11 46 15 97 32.3 108/58(85) A-Fib 0 (11) 10(A) , No pain 10:35:21 42 15 97 33 108/60(92) A-Fib 0 (11) 10(A) , No pain 10:39:39 43 19 96 33 109/62(95) A-Fib 0 (11) 10(A) , No pain 10:43:59 44 15 97 33 114/58(86) A-Fib 0 (11) 10(A) , No pain 10:48:20 39 13 98 32.3 113/62(88) A-Fib 0 (11) 10(A) , No pain 10:53:43 48 9 91 12 100/58(75) NSR 0 (11) 8(A) , No pain 10:57:59 45 14 91 0 100/53(78) A-Fib 0 (11) 8(A) , No pain Medications Time Medication Route Dose Verified Delivered Reason Notes Effective ness by by 10:18:44 0.9% NaCl I.V. 100 Gilbert Gilbert Per ml/hr Allegra Dinh physician RN RN 10:18:59 Oxygen etCO2 5 Gilbert Gilbert for low Nasal l/min Allegra Dinh 02 sats cannula RN RN 10:50:35 Refer to Gilbert Abdullahi for Anesthesia Allegra Boyce sedation Notes for BOOKER RUBALCAVA Sedation Medications Procedure Log Time Note 9:48:50 Informed consent obtained and on chart 9:49:11 Procedure Status Cardioversion. 10:01:15 Time tracking: Regular hours (M-F 7:00 - 5:00) 10:01:21 Plan of Care:Hemodynamics will remain stable., Cardiac rhythm will remain stable., Comfort level will be maintained., Respiratory function will remain adequate., Patient/ family verbilizes understanding of procedure., Procedure tolerated without complication., Recovers from procedure without complications.. 10:01:31 H&P Date Dictated: 02/15/2021 Within 30 days and on chart., H&P Addendum completed by physician on day of procedure. (MUST COMPLETE FOR ALL OUTPATIENTS). 10:01:37 Patient allergic to Iodine 10:03:27 Gilbert Dinh RN sent for patient. Start room use. 10:11:52 Patient received from Outpatients to CCL 1 Alert and oriented. Tansferred to table in Supine position. 10:11:54 Warm blankets applied, and fidel hugger turned on for patient comfort. 10:11:55 Correct patient and procedure confirmed by team. 10:11:57 ECG and BP/O2 sat monitors applied to patient. 10:16:00 Vital chart was started 10:16:04 Baseline sample Acquired. 10:16:16 Rhythm: atrial flutter 10:16:18 Full Disclosure recording started 10:16:21 Pre-procedure instructions explained to patient. 10:16:22 Pre-op teaching completed and patient verbalized understanding. 10:16:25 Family in patients room. 10:18:44 0.9% NaCl 100 ml/hr I.V. was administered by Gilbert Dinh RN; Per physician; Verbal order read back and verified. 10:18:59 Oxygen 5 l/min etCO2 Nasal cannula was administered by Gilbert Dinh RN; for low 02 sats; Verbal order read back and verified. 10:25:01 Is the patient allergic to Iodine/contrast media? Yes. 10:25:06 Is patient on blood thinner?Yes 10:25:13 ACC The patient was administered the following blood thiners within the last 24 hours: Xarelto 10:26:14 Patient diabetic? Yes. 10:26:18 If diabetic: On Metformin? Yes 10:26:21 If on Metformin: Last Dose? 02/21/2021 10:26:28 Previous problem with sedation/anesthesia? No ? 10:26:30 Snore? Yes 10:26:32 Sleep apnea? Yes 10:26:34 Deviated septum? No 10:26:37 Opens mouth fully? Yes 10:26:41 Sticks out tongue? Yes 10:26:54 Airway obstruction? Yes COPD 10:27:06 Dentures? No ? 10:27:20 IV patent on arrival in Right upper arm with 0.9% NaCl at [facility]. 10:27:31 Lab results completed and on chart. 10:27:41 Alarms reviewed by R. N. 10:50:11 Sharps counted by scrub and verified by RAdalNAdal 10:50:12 Physician arrived 10:50:15 --------ALL STOP TIME OUT------ 10:50:16 Final Timeout: patient, procedure, and site verified with staff and physician. All members of the team are in agreement. 10:50:19 Mid Chest site verified by team. 10:50:25 Fire Safety Assessment: A--An alcohol-based skin anteseptic being used preoperatively., B--The operative or invasive procedure is being performed above the xiphoid process or in the oropharynx., C--Open oxygen or nitrous oxide is being used., D--An ESU, laser, or fiber-optic light is being used., E--There are other possible contributors. 10:50:30 Physical assessment completed. ASA score P 2 - A patient with mild systemic disease as per Rao Juarez MD. 10:50:35 Refer to Anesthesia Notes for Sedation Medications was administered by Bradly Boyce CRNA; for sedation; Verbal order read back and verified. 10:50:47 Sedation plan: TIVA Medication:Propofol 10:50:50 Bradly Boyce CRNA present and monitoring patient for TIVA. 10:51:07 Procedure started. 10:51:13 ------Cardioversion------ 10:51:14 Quick combo pads placed on patients chest and back. 10:53:02 Defibrillator synced and charged to 200J Joules. 10:53:05 Shock delivered. 10:53:09 Patient cardioverted to sinus rhythm . 10:54:46 Procedure ended.(Physican Out) 10:55:01 Post-procedure physical assessment completed. ASA score P 2 - A patient with mild systemic disease as per Rao Juarez MD. 10:55:05 Post procedure rhythm: sinus rhythm 10:55:10 Post procedure instruction explained to patient.Patient verbalizes understanding. 10:55:14 Procedure and supply charges have been captured, reviewed, submitted and are correct. 10:55:21 Procedure Complication : No complications 10:55:37 Quick Combo opened to sterile field. 10:58:35 Vital chart was stopped 10:58:38 Operative report dictated upon procedure completion. 10:58:39 See physician's report for complete and final results. 10:58:41 Report given to Pre/Post Procedure Room. 10:58:47 Patient transfered to Pre/Post Procedure Room with Stretcher. 10:59:04 Procedure ended. 10:59:04 Full Disclosure recording stopped 10:59:09 End room use (Document Last) Device Usage Item Manufacture Quantity Catalog Hospital Part Current Minimal Lot# / Name Number Charge Number Stock Stock Pearl n[place]# Code Whatever 1 [id number] Combo Signature Audit Forest Stage Time Signature Unsigned Intra-Procedure 02/21/2021 Denita Rodriguez 11:00:24 AM RT(R) Intra-Procedure 02/21/2021 Gilbert 11:01:12 AM Allegra CELESTE Intra-Procedure 02/21/2021 Rao Briggs 11:01:43 AM Harish [id number] [place] [address]
[~2021-02-21 08:23] MED LIST changes: +LANTUS SOL100 UNIT/2 SC; -LANTUS SOLOSTAR3 ML SC
[2021-02-21] MEDS ORDERED: FUROSEMIDE40 MG PO (09:09)
[2021-02-21] MEDS ORDERED: GABAPENTIN300 MG PO ×2 (09:10→09:21)
[2021-02-21] MEDS ORDERED: BETAPACE 120 M120 MG PO (09:10)
[2021-02-21] MEDS ORDERED: SINGULAIR10 MG PO (09:10)
[2021-02-21] MEDS ORDERED: PROTONIX40 MG PO (09:11)
[2021-02-21] MEDS ORDERED: SYMBICORT 16010.2 GM INH (09:11)
[2021-02-21] MEDS ORDERED: TRESIBA FL100 UNIT/1 SC (09:12)
[2021-02-21] MEDS ORDERED: PRED-FORTE 1% OP5 ML EACH EYE (09:12)
[2021-02-21 09:34] VITALS: BP 113/64; Ht 175.3 cm; Wt 126.5 kg
[2021-02-21] MEDS ORDERED: IPRAT-ALBUT 0.5-3 ML UPD (09:46)
[2021-02-21 09:48] LABS: BASOPHILS 0.9 % (0-2); EOSINOPHILS 0.8 % (0-7); HEMATOCRIT 41.1 % (42.0-54.0); HEMOGLOBIN 13.4 g/dL (13.5-17.5); LYMPHOCYTES 13.7 % (15-50); MCH 27.9 pg (26.0-34.0); MCHC 32.7 g/dL (31.0-37.0); MCV 85.4 fL (80.0-100.0); MEAN PLATELET VOLUME 8.9 fL (7.4-10.4); MONOCYTES 11.7 % (2-11); NEUTROPHILS 72.9 % (40-80); PLATELET COUNT 196 10x3/uL (130-400); RBC 4.81 10x6/uL (4.20-6.10); WBC 10.6 10x3/uL (4.8-10.8)
[2021-02-21 09:56] LABS: ANION GAP 9.9 mmol/L (8-16); CALCIUM 9.1 mg/dL (8.5-10.1); CARBON DIOXIDE 28.8 mmol/L (21.0-32.0); CREATININE - SERUM 1.3 mg/dL (0.6-1.3); POTASSIUM - SERUM 4.7 mmol/L (3.5-5.1)
[2021-02-21 10:13] LABS: INR 2.87 (0.85-1.17)
--- NOTE | 2021-02-21 11:08 | NUR ---
PT ARRIVED BY STRETCHER. PLACED ON MONITORS. ASSESSMENT COMPLETED. VSS AT THIS TIME. CALL LIGHT WITHIN REACH. FAMILY AT BEDSIDE. DR. BATEMAN ROUNDED AND SPOKE WITH PT AND PT'S .
--- NOTE | 2021-02-21 11:23 | NUR ---
PT RESTING COMFORTABLY. VSS. PT IN SINUS ALISON. HR 58.
--- NOTE | 2021-02-21 12:00 | NUR ---
PT IN SB. HR 57. BP 120/58. PT ATE HIS FOOD AND COFFEE AND DENIES ANY NAUSEA/PAIN. NO OTHER NEEDS AT THIS TIME.
--- NOTE | 2021-02-21 12:15 | NUR ---
PIV D/C'D WITH CATH TIP INTACT. TOLERATED WELL. DISCUSSED DISCHARGE INSTRUCTIONS WITH PT AND PT'S FAMILY. THEY VOICED UNDERSTANDING. PT INSTRUCTED TO GET UP AND DRESSED AT THIS TIME. FAMILY AT BEDSIDE TO ASSIST.
--- NOTE | 2021-02-21 12:25 | NUR ---
PT AMBULATED TO RESTROOM. VOIDED WITHOUT DIFFICULTY. STEADY GAIT NOTED. PT TAKEN TO VEHICLE BY WHEELCHAIR. NO S/S OF DISTRESS NOTED. ALL BELONGINGS AND PAPERWORK IN HAND.
--- NOTE | 2021-02-22 14:27 | OP ---
PATIENT NAME: JINNY THORNTON MEDICAL RECORD: [id number] :49 LOCATION:D.CAT ADMISSION DATE: SURGEON: SRINIVASAN BATEMAN MD DATE OF OPERATION: 02/21/2021 PROCEDURE: Cardioversion. INDICATION: Atrial fibrillation. DESCRIPTION OF PROCEDURE: After general sedation via TIVA by anesthesia, a single synchronized shock successfully converted atrial fibrillation to normal sinus rhythm. During the procedure, the patient was monitored continuously with pulse oximetry, telemetry, and noninvasive blood pressure monitoring. IMPRESSION: Successful cardioversion note. TRANSINT:[id number] Voice Confirmation ID: [id number] DOCUMENT ID: [id number] SRINIVASAN BATEMAN MD at 1427 CC: [id number] DICTATION DATE: 02/21/21 1056 [employer] WORK PROFESSOR: 02/21/21 1216 [facility] 02/21/21 [id number] [place] [address]
== END 2021-02-21 12:25 | disposition home or self-care (01) ==
LOC: D.CATH 08:23
PROVIDERS: ATTEND Internal Medicine Interventional Cardiology
DX: R06.00 Dyspnea, unspecified (principal); I48.91 Unspecified atrial fibrillation; I10 Essential (primary) hypertension; E11.9 Type 2 diabetes mellitus without complications; R60.0 Localized edema